=== PATIENT | female | born 1975 | race Caucasian/White ===

== ENCOUNTER 2017-02-15 18:16 | Emergency (ER) | payer OTHER ==
[~2017-02-15 18:16] MED LIST: HYDR-79 PO
[2017-02-15 18:25] VITALS: BP 150/90
--- NOTE | 2017-02-15 18:32 | PHYS DOC ---
Past History Past Medical History: No Pertinent History Past Surgical History: Hysterectomy, Tonsillectomy Smoking: Non-smoker, Cigarettes Alcohol Use: Occasionally Drug Use: None Adult General Chief Complaint Chief Complaint: WRIST PAIN HPI HPI Patient is a 41 year old F who presents with slipped and fell on her driveway last night injuring her right arm. Patient complains of right wrist, elbow, shoulder pain. Patient has some bruising to her right shoulder. Patient has pain with range of motion. Patient sustained no other injuries. Patient no loss of consciousness. Patient denies any other pain to her other extremities. Review of Systems Review of Systems GEN: Denies fevers, chills, sweats HEENT: Denies blurred vision, sore throat CV: Denies chest pain RESP: Denies shortness of air, cough GI: Denies n/v/d NEURO: Denies confusion, dizziness MSK: Right wrist, elbow, shoulder. Allergies Allergies Allergies Coded Allergies Type Severity Reaction Last Updated Verified No Known Drug Allergies 01/24/14 No Physical Exam Physical Exam GEN.: No apparent distress. Alert and oriented. HEENT: Head is normocephalic, atraumatic NECK: Supple. LUNGS: CTAB. HEART: RRR, S1, S2 present. Peripheral pulses intact ABDOMEN: Soft, nontender. Positive bowel sounds. EXTREMITIES: Without any cyanosis. Positive tenderness palpation to the right wrist, right elbow, right shoulder with decreased range of motion secondary to pain. Patient has a capillary refill less than 2 seconds in all 5 fingers and can move all 5 fingers. Patient is good radial pulse on the right. Patient does have some ecchymotic bruising to her lateral deltoid on the right. NEUROLOGIC: Normal speech, normal tone PSYCHIATRIC: Normal affect, normal mood. SKIN: No ulcerations EKG EKG [] Radiology/Procedures Radiology/Procedures X-ray of the right wrist no obvious fracture X-ray of the right elbow no obvious fracture X-ray of the right shoulder no obvious fracture [] Course & Med Decision Making Course & Med Decision Making Pertinent Labs and Imaging studies reviewed. (See chart for details) ED course: Patient was seen and examined in the emergency room x-rays of the right wrist, elbow, shoulder were ordered 1904: Discussed x-ray results with the patient and plan to place her in a right wrist splint and have her follow-up with her PCP to prescribe her Motrin 800 mg tablets for pain MDM: After reviewing the chart, CC/HPI/PMH, physical exam, [radiological results], I do not believe the patient sustained an obvious fracture of her right upper extremity warranting further workup and/or admission at this time. I believe patient is stable for discharge with outpatient follow-up. Patient was prescribed anti-inflammatory medication for pain management. Additional verbal discharge instructions were provided to the patient and that if symptoms get worse or any new symptoms arise that are worrisome to the patient she is to return to the emergency room immediately [] Dragon Disclaimer Dragon Disclaimer This chart was dictated in whole or in part using Voice Recognition software in a busy, high-work load, and often noisy Emergency Department environment. It may contain unintended and wholly unrecognized errors or omissions. Departure Departure: Impression: Primary Impression: Right wrist pain Additional Impressions: Right elbow pain Right shoulder pain Disposition: HOME, SELF-CARE Condition: IMPROVED Referrals: ALESSIO SALCEDO MD (PCP) Patient Instructions: Wrist Pain, [id number] Additional Instructions: Please follow up with her family doctor next one to 2 days Scripts Ibuprofen (IBUPROFEN) 800 Mg Tablet 1 TAB PO TID, #30 TAB Prov: NIYA REILLY DO 02/15/17 Problem Qualifiers NIYA REILLY DO Feb 15, 2017 18:32
[2017-02-15] MEDS ORDERED: IBUP800T19 PO (19:05)
--- NOTE | 2017-02-16 08:15 | RAD ---
3 views right elbow 02/15/2017 Clinical indications: Fall with right elbow pain. Comparison: None. Findings: There are 3 peripherally sclerotic lucent tracts in the distal humeral diaphysis compatible with old screw tracks. No acute fracture or traumatic malalignment. No significant joint effusion. Findings: No acute osseous abnormality.
--- NOTE | 2017-02-16 08:18 | RAD ---
Right wrist radiograph, 3 views 02/15/2017 Clinical indication: Right wrist pain. Comparison: None. Findings: No acute fracture or traumatic malalignment. Distal radius and ulna are intact. Normal alignment of the carpal bones. Impression: No acute osseous abnormality.
--- NOTE | 2017-02-16 08:20 | RAD ---
Right shoulder radiograph 02/15/2017 2 views Comparison: None. Findings: No acute fracture or traumatic malalignment. Glenohumeral and acromioclavicular articulations are maintained. There is a 1.1 cm calcified granuloma in the right midlung. Impression: No acute osseous abnormality.
== END 2017-02-15 19:10 | disposition home or self-care (01) ==
LOC: ER 18:16
DX: M25.531 Pain in right wrist (principal); M25.521 Pain in right elbow; M25.511 Pain in right shoulder; F17.210 Nicotine dependence, cigarettes, uncomplicated; W01.0XXA Fall on same level from slipping, tripping and stumbling without subsequent striking against object, initial encounter; Y93.89 Activity, other specified; Y99.8 Other external cause status; Y92.89 Other specified places as the place of occurrence of the external cause
CPT/HCPCS: 29125; 73030; 73080; 73110; 99284-25

== ENCOUNTER 2017-06-01 21:11 | Emergency (ER) | payer OTHER ==
[~2017-06-01] VITALS: Ht 172.7 cm; Wt 100.0 kg
[~2017-06-01 21:11] MED LIST changes: +IBUP800T19 PO
--- NOTE | 2017-06-01 21:42 | PHYS DOC ---
Past History Past Medical History: No Pertinent History Past Surgical History: Hysterectomy, Other Smoking: Non-smoker, Cigarettes Alcohol Use: Occasionally Drug Use: None Adult General Chief Complaint Chief Complaint: FINGER INJURY HPI HPI Patient is a pleasant 41-year-old otherwise healthy female who was wrestling with her children 3 or 4 nights ago when she noted decreased range of motion in the right middle finger while trying to flex and extend it. Patient does not remember a specific injury pattern but noted swelling at the proximal phalanx over the PIP with mild tenderness to palpation over the PIP joint and decreased sensation to the pad of the finger. Patient says the finger will only flex to about 90 and she cannot extend it fully past 170. The rest of her fingers are not affected she developed no pain along the palmar surface of the hand specifically in zones 34 and 5. Patient has no deformity to the joints and admits this is not a fight bite or a traumatic injury associate with striking surface. She's never injured this finger in the past Review of Systems Review of Systems Musculoskeletal: Denies back pain or joint pain [] Integument: Denies rash or skin lesions [] Neurologic: Denies headache, focal weakness , he does admit to having some tingling and numbness to the pad of the finger only on that right middle finger of the distal phalanx All other systems were reviewed and found to be within normal limits, except as documented in this note. Allergies Allergies Allergies Coded Allergies Type Severity Reaction Last Updated Verified No Known Drug Allergies 01/24/14 No Physical Exam Physical Exam Vital signs recorded on the chart patient noted to be hypertensive Constitutional: Well developed, well nourished, no acute distress, non-toxic appearance. [] HENT: Normocephalic, atraumatic, Skin: Warm, dry, no erythema, no rash. [] Extremities: No tenderness, no cyanosis, no clubbing, ROM intact, no edema. Patient's right middle finger has some mild tenderness over the PIP there is decreased sensation to light touch over the palmar surface of the distal phalanx only. Patient has brisk capillary refill +2 peripheral pulses at the ulnar and radial artery are normal patient has decreased range of motion with flexion stopping about 90 with no clear popping or locking the patient has decreased range of motion with flexion as well where her finger was only extended about 170 straight. Neurologic: Alert and oriented X 3, normal motor function, no focal deficits noted. [] Psychologic: Affect normal, judgement normal, mood normal. [] EKG EKG [] Radiology/Procedures Radiology/Procedures []3 view x-ray of the right hand read by me demonstrates no occult dislocation but there is a small avulsion fracture suspected at the PIP of the right middle finger on the lateral view there is a small avulsion injury of the insertion of the tendon of the flexor digitorum profundus. There is no air no foreign body x- ray read by me Course & Med Decision Making Course & Med Decision Making Pertinent Labs and Imaging studies reviewed. 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 She clearly does not have a dislocated joint or but there is signs of small avulsion fracture. At the PIP of the proximal phalanx of the right middle finger X-ray of the completed before splinting and referral to hand surgeon. [] Dragon Disclaimer Dragon Disclaimer This electronic medical record was generated, in whole or in part, using a voice recognition dictation system. Departure Departure: Impression: Primary Impression: Trigger finger of right hand Additional Impression: Injury of tendon of finger Disposition: 01 HOME, SELF-CARE Condition: STABLE Referrals: ALESSIO SALCEDO MD (PCP) Patient Instructions: Trigger Finger Additional Instructions: My discharge plan Follow up: In addition patient is asked to followup with their primary doctor, within a week for followup examination and to address patient's ongoing medical conditions. Patient is advised that in the Emergency Department primary complaints are addressed and only in light of known signs and symptoms. Patient should return immediately to the emergency department if new signs and symptoms develop or patient's condition worsens in any way. At time of discharge patient was in stable condition and had verbalized understanding of the discharge instructions. She was to be a small avulsion fracture over the right middle finger proximal phalanx at the site of tendon insertion that will are more specialist care by hand surgeon. Please follow-up as instructed. Dr. Reji Sesay [address] [place] [address] Scripts Naproxen Sodium (NAPROXEN SODIUM) 275 Mg Tablet 275 MG PO BID for 7 Days, #14 TAB Prov: ANA MENDENHALL MD 06/01/17 Problem Qualifiers ANA MENDENHALL MD Jun 01, 2017 21:42
[2017-06-01] MEDS ORDERED: NAPR275T59 PO (22:12)
--- NOTE | 2017-06-02 07:52 | RAD ---
EXAM: Right hand, 3 views. HISTORY: Swelling and numbness. COMPARISON: 02/15/2017. FINDINGS: Frontal, lateral and oblique views of the right hand are obtained. There is a tiny ossicle along the palmar aspect of the distal third proximal phalanx, likely developmental or the sequela of remote injury. There is soft tissue swelling involving the base of the third phalanx. No acute fracture, dislocation or subluxation is seen. IMPRESSION: 1. No acute osseous finding. 2. Small ossicle along the palmar aspect of the distal third proximal phalanx, chronic in appearance.
== END 2017-06-01 22:25 | disposition home or self-care (01) ==
LOC: ER 21:11
DX: S62.612A Displaced fracture of proximal phalanx of right middle finger, initial encounter for closed fracture (principal); F17.210 Nicotine dependence, cigarettes, uncomplicated; X58.XXXA Exposure to other specified factors, initial encounter; Y93.72 Activity, wrestling; Y99.8 Other external cause status; Y92.89 Other specified places as the place of occurrence of the external cause
CPT/HCPCS: 29130; 73130; 99284-25

== ENCOUNTER 2018-08-28 16:07 | Emergency (ER) | payer OTHER ==
[~2018-08-28] VITALS: Ht 172.7 cm; Wt 100.0 kg
[~2018-08-28 16:07] MED LIST changes: +HYDR-1179 PO; -HYDR-79 PO; +NAPR275T59 PO
[2018-08-28 16:23] VITALS: BP 150/87
--- NOTE | 2018-08-28 16:36 | RAD ---
EXAM: Left wrist, 3 views. HISTORY: Fall. COMPARISON: None. FINDINGS: 3 views of the left wrist are obtained. There is no fracture, dislocation or subluxation. IMPRESSION: No acute osseous finding. Electronically signed by: Di Montanez MD (08/28/2018 4:32 PM) [place] [id number]
[2018-08-28] MEDS ORDERED: HYDR-3165 PO (16:46)
[2018-08-28] MEDS ORDERED: NAPR-683 PO (16:46)
--- NOTE | 2018-08-28 16:47 | PHYS DOC ---
Past History Past Medical History: No Pertinent History Past Surgical History: Hysterectomy, Other Smoking: Non-smoker Alcohol Use: Occasionally Drug Use: None Adult General Chief Complaint Chief Complaint: UPPER EXTREMITY INJURY HPI HPI Patient is a 43 year old right-handed female who presents with complaining of injury to left wrist. Patient states she landed on hyperextended left hand today at 11 AM while wanted to prevent of a fall and injured her left wrist. Patient states she put ice on her wrist but her pain is not getting better. Patient denies focal neuro deficit and other injuries. Review of Systems Review of Systems Constitutional: Denies fever or chills [] Eyes: Denies change in visual acuity, redness, or eye pain [] HENT: Denies nasal congestion or sore throat [] Respiratory: Denies cough or shortness of breath [] Cardiovascular: No additional information not addressed in HPI [] GI: Denies abdominal pain, nausea, vomiting, bloody stools or diarrhea [] : Denies dysuria or hematuria [] Musculoskeletal: Denies back pain, reports joint pain [] Integument: Denies rash or skin lesions [] Neurologic: Denies headache, focal weakness or sensory changes [] Endocrine: Denies polyuria or polydipsia [] All other systems were reviewed and found to be within normal limits, except as documented in this note. Allergies Allergies Allergies Coded Allergies Type Severity Reaction Last Updated Verified No Known Drug Allergies 01/24/14 No Physical Exam Physical Exam Constitutional: Well developed, well nourished, mild acute distress, non-toxic appearance. [] HENT: Normocephalic, atraumatic. Eyes: PERRLA, EOMI, conjunctiva normal, no discharge. [] Neck: Normal range of motion, no tenderness, supple, no stridor. [] Cardiovascular:Heart rate regular rhythm, no murmur [] Lungs & Thorax: Bilateral breath sounds clear to auscultation [] Skin: Warm, dry, no erythema, no rash. [] Back: No tenderness, no CVA tenderness. [] Extremities: Left wrist without deformity or edema or erythema, painful range of motion without focal tenderness. Neurologic: Alert and oriented X 3, normal motor function, normal sensory function, no focal deficits noted. [] Psychologic: Affect normal, judgement normal, mood normal. [] Current Patient Data Vital Signs Vital Signs Date Time Temp Pulse Resp B/P (MAP) Pulse Ox O2 Delivery O2 Flow Rate FiO2 08/28/18 16:23 98.1 75 18 98 Room Air EKG EKG [] Radiology/Procedures Radiology/Procedures [address] [id number] IMAGING REPORT Signed PATIENT: ISAAC SESAY ACCOUNT: [id number] : 1975 LOCATION: ER AGE: 43 SEX: F EXAM STATUS: REG ER ORD. PHYSICIAN: ALOK LLOYD MD REASON: injury PROCEDURE: WRIST 3V LEFT EXAM: Left wrist, 3 views. HISTORY: Fall. COMPARISON: None. FINDINGS: 3 views of the left wrist are obtained. There is no fracture, dislocation or subluxation. IMPRESSION: No acute osseous finding. Electronically signed by: Syeda Montanez MD (08/28/2018 4:32 PM) [place] [id number] DICTATED AND SIGNED BY: SYEDA MONTANEZ MD DATE: 08/28/18 2844 CC: ALOK LLOYD MD; PCP,NO ~ Course & Med Decision Making Course & Med Decision Making Pertinent Imaging studies reviewed. (See chart for details) Evaluation of patient in ER showed 42-year-old female patient with injury to left wrist. Patient had painful range of motion of left wrist without edema or erythema. X-ray did not show fracture. Velcro wrist splint was applied by DESK MANAGER. Plan discharge patient home with diagnosis of left wrist sprain. Dragon Disclaimer Dragon Disclaimer This electronic medical record was generated, in whole or in part, using a voice recognition dictation system. Departure Departure: Disposition: HOME, SELF-CARE ([id number]) Condition: STABLE Referrals: PCP,NO (PCP) Patient Instructions: Wrist Sprain with [facility]hab[facility] Additional Instructions: Apply ice on left wrist Follow-up with your primary care physician in 3-5 days Return to ER if not getting better Scripts Hydrocodone Bit/Acetaminophen (NORCO 5-325 TABLET) 1 Each Tablet 1 TAB PO PRN Q6HRS PRN for PAIN, #10 TAB 0 Refills Prov: ALOK LLOYD MD 08/28/18 Naproxen (NAPROSYN) 500 Mg Tablet 500 MG PO BID for pain, #20 TAB Prov: ALOK LLOYD MD 08/28/18 ALOK LLOYD MD Aug 28, 2018 16:47
== END 2018-08-28 17:00 | disposition home or self-care (01) ==
LOC: ER 16:07
DX: S63.502A Unspecified sprain of left wrist, initial encounter (principal); W18.30XA Fall on same level, unspecified, initial encounter; Y93.89 Activity, other specified; Y92.89 Other specified places as the place of occurrence of the external cause; Y99.8 Other external cause status
CPT/HCPCS: 29125; 73110; 99283

== ENCOUNTER 2018-10-30 09:42 | Emergency (ER) | payer OTHER ==
[~2018-10-30] VITALS: Ht 172.7 cm; Wt 106.6 kg
[~2018-10-30 09:42] MED LIST changes: +HYDR-3165 PO; +NAPR-683 PO
--- NOTE | 2018-10-30 10:11 | RAD ---
Bilateral ankle radiograph 10/30/2018 9:46 AM INDICATION: Fall today with bilateral ankle pain COMPARISON: None available. TECHNIQUE: 3 views of the right and 3 views the left ankle are provided. FINDINGS: Right: There is no acute fracture or dislocation.. Tibial plafond and talar dome are intact. Ankle mortise is congruent. Bone mineralization is within normal limits. Joint spaces are maintained. There is lateral soft tissue swelling. There is no soft tissue gas or osseous erosion. Left: There is a spiral fracture involving the distal fibular diaphysis with extension to the distal tibiofibular joint space. Ankle mortise appears congruent. Tibial plafond is intact. Talar dome is intact. There is lateral soft tissue swelling. Bone mineralization is within normal limits. IMPRESSION: 1. There is a spiral fracture involving the distal fibular diaphysis with extension to the distal tibiofibular joint. Ankle mortise appears congruent. 2. Lateral soft tissue swelling of the right ankle without acute fracture. Electronically signed by: Brie Garcia MD (10/30/2018 10:08 AM) [id number]
[2018-10-30] MEDS ORDERED: MORPHINE SULFATE 4 MG/ML DISP.SYRIN. IM ONE (10:15)
[2018-10-30] MEDS ORDERED: IBUP600T16 PO (10:22)
[2018-10-30] MEDS ORDERED: HYDR-3165 PO (10:22)
--- NOTE | 2018-10-30 10:24 | PHYS DOC ---
Past History Past Medical History: Depression Past Surgical History: Hysterectomy, Tonsillectomy, Other Smoking: Non-smoker Alcohol Use: Occasionally Drug Use: None Adult General Chief Complaint Chief Complaint: LOWEREXTREMITY INJURY HPI HPI Patient is a 43 year old female who presents with complaint of bilateral ankle pain. Patient states that she suffered a fall last night after tripping outside. She states that she slipped on a wet surface and she fell, both of her feet inverted. Patient states that she is having more significant pain to the left ankle but notes that she injured both ankles. Has not been able to bear weight on her extremities. Has been receiving help from family for ambulation. Denies any other injuries. Rates pain as 9 out of 10 in the left ankle and 8 out of 10 in the right on my evaluation. Has not taken any medications thus morning. Review of Systems Review of Systems Constitutional: Denies fever or chills [] Eyes: Denies change in visual acuity, redness, or eye pain [] HENT: Denies nasal congestion or sore throat [] Respiratory: Denies cough or shortness of breath [] Cardiovascular: Denies chest pain or edema[] GI: Denies abdominal pain, nausea, vomiting, bloody stools or diarrhea [] : Denies dysuria or hematuria [] Musculoskeletal: Bilateral ankle pain[] Integument: Denies rash or skin lesions [] Neurologic: Denies headache, focal weakness or sensory changes [] All other systems were reviewed and found to be within normal limits, except as documented in this note. Current Medications Current Medications Current Medications Medications (Trade) Dose Ordered Sig/Nancy Start Time Stop Time Status Last Admin Dose Admin Morphine Sulfate (Morphine 4mg Syringe) 4 mg 1X ONCE 10/30/18 10:15 10/30/18 10:16 UNV 10/30/18 10:07 4 MG Allergies Allergies Allergies Coded Allergies Type Severity Reaction Last Updated Verified No Known Drug Allergies 10/30/18 No Physical Exam Physical Exam Constitutional: Alert, afebrile, appears in [id number] discomfort. [] HENT: Normocephalic, atraumatic, bilateral external ears normal, oropharynx moist, no oral exudates, nose normal. [] Eyes: PERRLA, EOMI, conjunctiva normal, no discharge. [] Neck: Normal range of motion, no tenderness, supple, no stridor. [] Cardiovascular:Heart rate regular rhythm, no murmur [] Lungs & Thorax: Bilateral breath sounds clear to auscultation [] Abdomen: Bowel sounds normal, soft, no tenderness, no masses, no pulsatile masses. [] Skin: Warm, dry, no erythema, no rash. [] Back: No tenderness, no CVA tenderness. [] Extremities: Left ankle with lateral malleolus tenderness, anterior and lateral swelling present, left foot normal, right ankle with lateral malleolus tenderness and lateral joint space swelling, right foot normal. [] Neurologic: Alert and oriented X 3, normal motor function, normal sensory function, no focal deficits noted. [] Current Patient Data Vital Signs Vital Signs Date Time Temp Pulse Resp B/P (MAP) Pulse Ox O2 Delivery O2 Flow Rate FiO2 10/30/18 10:07 18 96 Room Air 10/30/18 09:50 99.2 118 Lab Results Not performed EKG EKG Not performed[] Radiology/Procedures Radiology/[place] [address] IMAGING REPORT Signed PATIENT: ISAAC SESAY ACCOUNT: [id number] : 1975 LOCATION: ER AGE: 43 SEX: F EXAM STATUS: REG ER ORD. PHYSICIAN: STERLING CHRISTENSEN MD REASON: bilateral ankle pain after fall yesterday PROCEDURE: ANKLE BILAT 3V Bilateral ankle radiograph 10/30/2018 9:46 AM INDICATION: Fall today with bilateral ankle pain COMPARISON: None available. TECHNIQUE: 3 views of the right and 3 views the left ankle are provided. FINDINGS: Right: There is no acute fracture or dislocation.. Tibial plafond and talar dome are intact. Ankle mortise is congruent. Bone mineralization is within normal limits. Joint spaces are maintained. There is lateral soft tissue swelling. There is no soft tissue gas or osseous erosion. Left: There is a spiral fracture involving the distal fibular diaphysis with extension to the distal tibiofibular joint space. Ankle mortise appears congruent. Tibial plafond is intact. Talar dome is intact. There is lateral soft tissue swelling. Bone mineralization is within normal limits. IMPRESSION: 1. There is a spiral fracture involving the distal fibular diaphysis with extension to the distal tibiofibular joint. Ankle mortise appears congruent. 2. Lateral soft tissue swelling of the right ankle without acute fracture. Electronically signed by: Carol Chowdhury MD (10/30/2018 10:08 AM) [id number] DICTATED AND SIGNED BY: CAROL CHOWDHURY MD DATE: 10/30/18 1008 CC: STERLING CHRISTENSEN MD; PCP,NO ~ [] Course & Med Decision Making Course & Med Decision Making Pertinent Labs and Imaging studies reviewed. (See chart for details) X-rays confirm a left distal fibula fracture. Given morphine 4 mg IM. Right ankle negative for fracture. Appears consistent with right ankle sprain. Patient placed in an Ciro wrap and Aircast to the right ankle and placed in a posterior short-leg splint by the emergency department nurse to the left lower extremity. My evaluation post splint application revealed normal capillary refill in all 5 digits of the left foot and normal sensation. Advised follow- up with Dr. Yip in 5 days for reevaluation and return to emergency department for any worsening symptoms. Patient was understanding and in agreement with treatment plan. Dragon Disclaimer Dragon Disclaimer This electronic medical record was generated, in whole or in part, using a voice recognition dictation system. Departure Departure: Impression: Primary Impression: Fracture of distal fibula Additional Impression: Ankle sprain Referrals: PCP,KUN (PCP) TA YIP MD Patient Instructions: Ankle Sprain, Fibular Fracture, Ankle, Adult, Treated with or without Immobilization Additional Instructions: Follow-up with Dr. Yip in the next 5 days for reevaluation. Return to the emergency department for any worsening symptoms. Scripts Ibuprofen (IBUPROFEN) 600 Mg Tablet 600 MG PO Q6HRS PRN for PAIN, #30 TAB Prov: STERLING CHRISTENSEN MD 10/30/18 Hydrocodone Bit/Acetaminophen (NORCO 5-325 TABLET) 1 Each Tablet 1-2 TAB PO Q4-6HRS, #30 TAB Prov: STERLING CHRISTENSEN MD 10/30/18 Problem Qualifiers Primary Impression: Fracture of distal fibula Encounter type: initial encounter Fracture type: closed Fracture morphology : other fracture Laterality: left Qualified Codes: S82.832A - Other fracture of upper and lower end of left fibula, initial encounter for closed fracture Additional Impression: Ankle sprain Encounter type: initial encounter Involved ligament of ankle: anterior talofibular ligament Laterality: right Qualified Codes: S93.491A - Sprain of other ligament of right ankle, initial encounter STERLING CHRISTENSEN MD Oct 30, 2018 10:23
[2018-10-30 10:47] VITALS: BP 118/79
== END 2018-10-30 10:58 | disposition home or self-care (01) ==
LOC: ER 09:42
DX: S82.832A Other fracture of upper and lower end of left fibula, initial encounter for closed fracture (principal); S93.491A Sprain of other ligament of right ankle, initial encounter; F32.9 Major depressive disorder, single episode, unspecified; W01.0XXA Fall on same level from slipping, tripping and stumbling without subsequent striking against object, initial encounter; Y93.89 Activity, other specified; Y92.89 Other specified places as the place of occurrence of the external cause; Y99.8 Other external cause status
CPT/HCPCS: 29515; 73610; 96372; 99284; J2270

== ENCOUNTER → 2019-02-10 | Outpatient (CLI) | payer OTHER ==
[~2019-02-10] MED LIST changes: +IBUP600T16 PO
--- NOTE | 2019-02-10 16:46 | RAD ---
Examination: 2 views of the left ankle HISTORY: History of fracture follow-up COMPARISON: 10/30/2018. Findings/ impression: Oblique fracture of the distal fibular diaphysis is identified with some interval mild callus formation likely ongoing healing changes. The ankle mortise appears intact. Fracture lucency is still identified. Electronically signed by: Kvng Noel MD (02/10/2019 4:43 PM) [facility]
== END | disposition home or self-care (01) ==
LOC: DXRAD 10:28
PROVIDERS: ATTEND Orthopaedic Surgery Sports Medicine
DX: S82.435D Nondisplaced oblique fracture of shaft of left fibula, subsequent encounter for closed fracture with routine healing (principal); X58.XXXD Exposure to other specified factors, subsequent encounter
CPT/HCPCS: 73610

== ENCOUNTER 2020-01-12 16:04 | Emergency (ER) | payer OTHER ==
[~2020-01-12] VITALS: Ht 172.7 cm; Wt 114.5 kg
--- NOTE | 2020-01-12 17:50 | RAD ---
EXAM: 2 views right tibia/fibula DATE: 01/12/2020 5:08 PM INDICATION: Reason: injury to right lower extremity, tripped/twisted just below knee COMPARISON: No Prior FINDINGS: Changes of ACL reconstruction are seen with tibial and femoral tunnels. No acute fracture or dislocation is seen. IMPRESSION: No evidence of acute fracture or dislocation. Electronically signed by: Johnathan Du MD (01/12/2020 5:47 PM) [facility]
[2020-01-12] MEDS ORDERED: HYDR-3165 PO (18:17)
--- NOTE | 2020-01-12 18:18 | PHYS DOC ---
Past History Past Medical History: Asthma, Depression Past Surgical History: Hysterectomy, Knee Replacement, Tonsillectomy Smoking: Non-smoker Alcohol Use: Occasionally Drug Use: None General Adult EDM: Chief Complaint: LOWER EXTREMITY SWELLING HPI: HPI: 44-year-old female presents with right lateral, posterior knee pain. The patient was walking on her deck in the dark last night when she tripped over a stick that her dog right upstairs. She fell into a dog food container and it was destroyed. Patient has bruising on her right hand she has some scratches on both legs. Her most significant pain is this right knee. She was able to sleep last night but today it continues to hurt. She has had ACL PCL repair about leg. She can walk on it but it is painful. She just wants to make sure there is not a fracture. Review of Systems: Review of Systems: Constitutional: Denies fever or chills Eyes: Denies change in visual acuity HENT: Denies nasal congestion or sore throat Respiratory: Denies cough or shortness of breath Cardiovascular: Denies chest pain or edema GI: Denies abdominal pain, nausea, vomiting, bloody stools or diarrhea : Denies dysuria Musculoskeletal: Right knee pain Integument: Denies rash Neurologic: Denies headache, focal weakness or sensory changes Endocrine: Denies polyuria or polydipsia Lymphatic: Denies swollen glands Psychiatric: Denies depression or anxiety Heart Score: Risk Factors: Risk Factors: DM, Current or recent (<one month) smoker, HTN, HLP, family history of CAD, obesity. Risk Scores: Score 0 - 3: 2.5% MACE over next 6 weeks - Discharge Home Score 4 - 6: 20.3% MACE over next 6 weeks - Admit for Clinical Observation Score 7 - 10: 72.7% MACE over next 6 weeks - Early Invasive Strategies Allergies: Allergies: Allergies Coded Allergies Type Severity Reaction Last Updated Verified No Known Drug Allergies 10/30/18 No Physical Exam: PE: Constitutional: Well developed, obese, well nourished, no acute distress, non- toxic appearance. [] HENT: Normocephalic, atraumatic, bilateral external ears normal, oropharynx mo ist, no oral exudates, nose normal. [] Eyes: PERRLA, EOMI, conjunctiva normal, no discharge. [] Neck: Normal range of motion, no tenderness, supple, no stridor. [] Cardiovascular:Heart rate regular rhythm, no murmur [] Lungs & Thorax: Bilateral breath sounds clear to auscultation [] Abdomen: Bowel sounds normal, soft, no tenderness, no masses, no pulsatile masses. [] Skin: Warm, dry, no erythema, no rash. [] Back: No tenderness, no CVA tenderness. [] Extremities: Right ACL and PCL with solid end feel. No pain with valgus and varus stress. Point tenderness at the posterior inferior part of the knee. [] Neurologic: Alert and oriented X 3, normal motor function, normal sensory function, no focal deficits noted. [] Psychologic: Affect normal, judgement normal, mood normal. [] Current Patient Data: Vital Signs: Vital Signs Date Time Temp Pulse Resp B/P (MAP) Pulse Ox O2 Delivery O2 Flow Rate FiO2 01/12/20 16:20 98.5 100 18 161/87 (111) 97 Room Air EKG: EKG: [] Radiology/Procedures: Radiology/Procedures: [] Impressions: EXAM: 2 views right tibia/fibula DATE: 01/12/2020 5:08 PM INDICATION: Reason: injury to right lower extremity, tripped/twisted just below knee COMPARISON: No Prior FINDINGS: Changes of ACL reconstruction are seen with tibial and femoral tunnels. No acute fracture or dislocation is seen. IMPRESSION: No evidence of acute fracture or dislocation. Electronically signed by: Johnathan Du MD (01/12/2020 5:47 PM) [facility] DICTATED AND SIGNED BY: JOHNATHAN DU MD DATE: 01/12/20 1747 CC: MAGAN BRENNAN DO; PATEL MORALES ~ Course & Med Decision Making: Course & Med Decision Making Pertinent Labs and Imaging studies reviewed. (See chart for details) The patient's x-ray is negative for fracture. Based on my exam, I wonder about a point bruise deeper from landing on the container that broke. There is no significant ecchymosis. The pain does not line up with ligament or meniscal injury. I have advised supportive care such as ibuprofen, ice, and rest. I will give her a short course of [place] 5/325 to help her sleep and to deal with the pain for the next couple days. She is stable for discharge at this time. [] Ryan Disclaimer: Ryan Disclaimer: This electronic medical record was generated, in whole or in part, using a voice recognition dictation system. Departure Departure: Impression: Primary Impression: Right knee pain Qualified Codes: M25.561 - Pain in right knee Additional Impression: Fall from slip, trip, or stumble Qualified Codes: W01.0XXA - Fall on same level from slipping, tripping and stumbling without subsequent striking against object, initial encounter Disposition: HOME/RESIDENCE PRIOR TO ADM Condition: STABLE Referrals: PATEL MORALES (PCP) Patient Instructions: Knee Pain, [id number] Scripts Hydrocodone Bit/Acetaminophen ([place] 5-325 TABLET) 1 Each Tablet 1 TAB PO PRN Q6HRS PRN for PAIN, #10 TAB 0 Refills Prov: MAGAN BRENNAN DO 01/12/20 Justification of Admission: Justification of Admission: Justification of Admission Dx: N/A MAGAN BRENNAN DO Jan 12, 2020 18:18
[2020-01-12 18:27] VITALS: BP 122/82
== END 2020-01-12 18:25 | disposition home or self-care (01) ==
LOC: ER 16:04
DX: M25.561 Pain in right knee (principal); G89.11 Acute pain due to trauma; J45.909 Unspecified asthma, uncomplicated; W01.198A Fall on same level from slipping, tripping and stumbling with subsequent striking against other object, initial encounter; Y93.01 Activity, walking, marching and hiking; Y92.89 Other specified places as the place of occurrence of the external cause; Y99.8 Other external cause status
CPT/HCPCS: 73590; 99283